=== PATIENT | female | born 1950 | race Caucasian/White ===

== ENCOUNTER 2016-09-23 06:27 | Inpatient (IN) | payer OTHER ==
[2016-08-04 10:18] VITALS: BMI 38.0
--- NOTE | 2016-08-04 10:47 | PAT Medication Instructions ---
Service Date Aug 04, 2016. Current Home Medication List Aspirin (Aspirin Ec), 81 MG PO QAM Ibuprofen (Motrin), 600 MG PO QAM Multiple Vitamin (Multi Vitamin), 1 TAB PO QAM Omeprazole (Prilosec), 20 MG PO QAM Oyster Shell (Calcium), 2 TAB PO QAM Medication Instructions For Your Scheduled Surgery - Hold the following medications 10 days prior to surgery per surgeon instructions: Ibuprofen (Motrin), 600 MG PO QAM - Hold the following medications the morning of surgery: Oyster Shell (Calcium), 2 TAB PO QAM Multiple Vitamin (Multi Vitamin), 1 TAB PO QAM - Take the following medications the morning of surgery with a sip of water: Aspirin (Aspirin Ec), 81 MG PO QAM Omeprazole (Prilosec), 20 MG PO QAM Tylenol (if needed) If you have any questions please call us at [phone] or [phone] ( Gretchen) or [phone]
--- NOTE | 2016-08-04 11:23 | DIAGNOSTIC IMAGING REPORT ---
TWO VIEW CHEST CLINICAL HISTORY: Preoperative examination. FINDINGS: PA and lateral chest radiographs are obtained. No prior studies are available for comparison at the time of dictation. The examination is degraded by large body habitus. The cardiomediastinal silhouette is unremarkable. The lungs and pleural spaces are clear. There is no pneumothorax. The skeletal structures are osteopenic. The bony thorax appears intact. Degenerative change is noted throughout the thoracic spine. IMPRESSION: No active disease in the chest. Electronically signed by: Victor Manuel Spear M.D. 08/04/2016 11:22 AM Dictated Date/Time: 08/04/2016 11:21 AM
[2016-08-04 11:41] LABS: BASO % 0.4 %; BASO ABS # 0.04 K/uL (0-0.2); COMPLETE YES; EOS % 3.1 %; HEMATOCRIT 41.1 % (37-47); IG% 0.3 %; LYMPH % 24.5 %; MEAN CORPUSCULAR HEMOGLOBIN 29.6 pg (25-34); MEAN CORPUSCULAR HGB CONC 33.6 g/dl (32-36); MEAN PLATELET VOLUME 11.3 fL (7.4-10.4); MONO % 5.9 %; NEUT % 65.8 %; PLATELET COUNT 269 K/uL (130-400); RED BLOOD COUNT 4.67 M/uL (4.2-5.4); WHITE BLOOD COUNT 9.39 K/uL (4.8-10.8)
[2016-08-04 11:59] LABS: INR 0.9 (0.9-1.1); PROTHROMBIN TIME (PATIENT) 9.6 SECONDS (9.0-12.0)
[2016-08-04 12:01] LABS: BUN/CREATININE RATIO 20.2 (10-20); CALCIUM 9.4 mg/dl (8.5-10.1); CREATININE 0.8 mg/dl (0.60-1.20); POTASSIUM 4.2 mmol/L (3.5-5.1)
--- NOTE | 2016-09-19 18:01 | HISTORY & PHYSICAL EXAMINATION ---
DATE OF ADMISSION: 09/23/2016 CHIEF COMPLAINT: Bilateral knee pain, right side greater than left. 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 She has got a long history of bilateral knee pain and discomfort, right side greater than left. She has been doing injections which did help temporarily only. This has become less successful over time, particularly in the right knee. The pain is mostly on the medial side of both knees. It is increased with weightbearing. She has become more debilitated by her disease and would like to have her right knee replaced. PAST MEDICAL HISTORY: Significant for: 1. Myasthenia gravis. 2. Gastroesophageal reflux disease. 3. Obesity. PAST SURGICAL HISTORY: 1. T\T\A. 2. [place] teeth extraction. ALLERGIES: MORPHINE AND CODEINE WHICH ARE NOT TRUE ALLERGIES BUT JUST SIDE EFFECTS SUCH NAUSEA. CURRENT MEDICINES: Include: 1. Aspirin once a day. 2. Multivitamin. 3. Calcium 4. Prilosec. SOCIAL HISTORY: A 65-year-old white female. She is single. She lives with one of her children and her spouse. Rare alcohol intake. No tobacco use. FAMILY HISTORY: Significant for heart disease. REVIEW OF SYSTEMS: Significant for myasthenia gravis. Apparently only affects her eyes. No current chest pain or shortness of breath. No history of DVT or PE. No bleeding problems. PHYSICAL EXAMINATION: GENERAL: Healthy, pleasant, middle-aged female, looks to be in good health. HEENT: Benign. NECK: Supple. No lymphadenopathy. LUNGS: Clear to auscultation. HEART: Regular rate and rhythm. ABDOMEN: Soft, nontender, nondistended. EXTREMITIES: Grossly neurovascularly intact except as follows: Examination of both knees reveals the patient walks independently. She does limp a little bit more on the right side. She has got varus alignment to the right knee. Range of motion is 5 degrees short of full extension to 120 degrees of flexion. No instability. Good straight leg raise. IMAGING DATA: X-rays of the right knee were reviewed. It shows advanced medial compartment DJD. She has complete loss of medial joint space. She has subchondral sclerosis. She has osteophytes off the medial femoral condyle and medial tibial plateau, similar disease on the left but not so severe. ASSESSMENT: A 65-year-old white female with advanced bilateral knee pain and degenerative joint disease, right side greater than left. Failed conservative treatment and would like to have her right knee replaced. PLAN: We are going to take her to the operating room and do a right total knee replacement. The risks and benefits of this procedure were explained to the patient including but not limited to DVT, PE, , infection, neurologic injury, vascular injury, bleeding, pain, limited range of motion, stiffness, failure to relieve his symptoms, incomplete relief of symptoms, need for further surgery in the future, fracture, leg length inequality, nerve palsy, etc. The patient understands and desires to proceed. Informed consent was obtained. The patient had preoperative workup. Chest x-ray showed no acute disease. EKG was normal. Labs are normal. As far as discharge plans, she is planning to be discharged to home and do outpatient therapy. We will have to be careful with her pain medicine, she gets nauseated easily. We will use aggressive antiemetics and titrate her on narcotics only as needed. SVITLANA
[~2016-09-23] VITALS: Ht 160 cm; Wt 97.3 kg
[2016-09-23] VITALS (7 sets, daily range): BP systolic 128–157; BP diastolic 66–81; PULSE 62–78; TEMP 36.4–36.8; O2SAT 95–99; Ht 160 cm; Wt 97.3 kg
[~2016-09-23 06:27] MED LIST: ACETAMINOPHEN 500 MG TAB PO SCH; ASPI81TA28 PO; BUPIVACAINE LIPOSOME 266 MG, BUPIVACAINE/EPINEPHRINE INJ 50 ML, SODIUM CHLORIDE 0.9% PF... INFIL SCH; CEFAZOLIN 2000 MG/60 ML D5W 60 ML IV SCH; FAMOTIDINE 20 MG TAB PO SCH; GABAPENTIN 300 MG CAP PO SCH; IBUP-1450 PO; LACTATED RINGER'S 1000ML 1,000 ML IV SCH; LACTATED RINGER'S 1000ML 500 ML IV ONE; LACTATED RINGER'S 1000ML IV SCH; METOCLOPRAMIDE HCL 10 MG TAB PO SCH; MULT-1027 PO; OYST500T47 PO; PRLSR20 PO; SCOPOLAMINE 1.5 MG TDSY TD SCH
[2016-09-23] MEDS ORDERED: BUPIVACAINE 0.25% 30 ML VIAL ONE (06:36)
[2016-09-23] MEDS ORDERED: BUPIVACAINE 0.5 % 5 MG/1 ML PF 10ML VIAL ONE (06:36)
--- NOTE | 2016-09-23 06:48 | History & Physical Bridge Note ---
H&P Re-Evaluation Bridge Note: I have examined the patient, reviewed the History & Physical and in the interval since the performance of the History & Physical I have noted the following changes of clinical significance: No changes noted
[2016-09-23] MEDS ORDERED: MIDAZOLAM HCL 1 MG/ML 2ML VIAL ONE (07:58)
[2016-09-23] MEDS ORDERED: ONDANSETRON INJ 2 MG/ML 2 ML VIAL IV PRN (08:00)
[2016-09-23] MEDS ORDERED: FENTANYL CITRATE INJ 50 MCG/1 ML 2 ML VIAL IV PRN (08:00)
[2016-09-23] MEDS ORDERED: ATROPINE SULFATE 0.1 MG/ML 5ML SYR IV PRN (08:00)
[2016-09-23] MEDS ORDERED: EpHEDrine SULFATE INJ 50 MG/ML AMP IV PRN (08:00)
[2016-09-23] MEDS: TRANEXAMIC ACID INJ 1,000 MG in SODIUM CHLORIDE 0.9% 100ML 100 ML IV SCH ×2 (08:55→11:47)
[2016-09-23] MEDS ORDERED: BACITRACIN 50000 UNIT VIAL ONE (09:05)
[2016-09-23] MEDS ORDERED: BUPIVACAINE LIPOSOME 1/3% 266 MG/20 ML VIAL INFIL ONE (09:05)
[2016-09-23] MEDS ORDERED: BUPIVACAINE/EPINEPHRINE 0.25% 1:200,000 30 ML VIAL ONE (09:05)
[2016-09-23] MEDS ORDERED: SODIUM CHLORIDE 0.9% PF 50 ML VIAL ONE (09:05)
[2016-09-23] MEDS ORDERED: PROPOFOL IV EMULSION 10 MG/ML 20 ML VIAL IV ONE (10:11)
[2016-09-23] MEDS ORDERED: LIDOCAINE HCL 2% 2 ML VIAL (20MG/ML) ONE (10:11)
--- NOTE | 2016-09-23 10:46 | [facility] Post Operative Brief Note ---
Immediate Operative Summary Operative Date Sep 23, 2016. Pre-Operative Diagnosis Right Knee Advanced Degenerative Joint Disease Post-Operative Diagnosis Right Knee Advanced Degenerative Joint Disease Procedure(s) Performed Right Total Knee Arthroplasty Surgeon Dr. Fontenot Patrol Inspector Surgeon(s) MELISSA Metz Estimated Blood Loss 50 ml Findings Right Knee DJD Fluids (cc crystalloids) 1800 cc Specimens A. Right Knee Bone and Tissue Drains None Anesthesia Spinal Complication(s) None Disposition Recovery Room / PACU
[2016-09-23] MEDS ORDERED: MAGNESIUM HYDROXIDE SUSP 30 ML UDC PO PRN (11:00)
[2016-09-23] MEDS ORDERED: HYDROmorphone INJ 0.5 MG/0.5 ML SYR IV PRN (11:00)
[2016-09-23] MEDS ORDERED: ZOLPIDEM TARTRATE 5 MG TAB PO PRN (11:00)
[2016-09-23] MEDS ORDERED: BISACODYL 10 MG SUPP PR PRN (11:00)
[2016-09-23] MEDS ORDERED: SILVER SULFADIAZINE 1% CR 50 GM JAR EXT PRN (11:00)
[2016-09-23] MEDS ORDERED: ALUMINUM/MAGNESIUM/SIMETH (MAALOX MAX) 30 ML UDC PO PRN (11:00)
[2016-09-23] MEDS ORDERED: METOCLOPRAMIDE HCL INJ 5 MG/ML 2 ML VIAL IV PRN (11:00)
[2016-09-23] MEDS ORDERED: OXYCODONE HCL IR 5 MG TAB (IMMEDIATE RELEASE) PO PRN (11:00)
--- NOTE | 2016-09-23 11:11 | DIAGNOSTIC IMAGING REPORT ---
RIGHT KNEE 2 VIEWS History: Right total knee arthroplasty. Degenerative arthritis. Postop. FINDINGS: The patient is status post a right total knee arthroplasty. The hardware is intact. No fracture or dislocation. Skin riana are in place. IMPRESSION: Right total knee arthroplasty. No evidence for hardware complication. Electronically signed by: Harsha Garza M.D. 09/23/2016 11:09 AM Dictated Date/Time: 09/23/2016 11:09 AM
--- NOTE | 2016-09-23 11:13 | OPERATIVE REPORT ---
DATE OF OPERATION: 09/23/2016 SURGEON: Charly Fontenot MD GUITAR PLAYER: MELISSA Vilchis PREOPERATIVE DIAGNOSIS: Right knee degenerative joint disease. POSTOPERATIVE DIAGNOSIS: Same. PROCEDURE PERFORMED: Right cemented posterior stabilized total knee arthroplasty. COMPLICATIONS: None. ESTIMATED BLOOD LOSS: 50 mL. FLUID REPLACEMENT: 1800 mL crystalloid fluid replacement. ANESTHESIA: Spinal with adductor canal block. DRAINS: None. SPECIMENS: Right knee sent for pathology. TOURNIQUET TIME: 48 minutes at 300 mmHg. 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 She has been through extensive conservative treatment without adequate relief. X-rays revealed advanced right knee DJD. The patient elected to proceed with total knee arthroplasty. OPERATIVE FINDINGS: Operative findings revealed advanced right knee DJD. She had grade 4 [id number] disease extensively in the medial femoral condyle and medial tibial plateau. The remainder of the knee joint was pretty well preserved. She had a moderate sized joint effusion. She had varus deformity to her knee. OPERATIVE IMPLANTS: Operative implants consisted of: 1. Biomet Vanguard size 65 right posterior stabilized femoral component. 2. Biomet size 67 tibial tray. 3. A 10-mm posterior stabilized polyethylene insert. 4. A 31 x 8 all poly patella. OPERATIVE PROCEDURE: The patient was taken to the operating room, identified and placed on the operating table in the supine position. All contact areas were appropriately padded. IV antibiotics were provided by anesthesia team. A spinal anesthetic and adductor canal block had been provided in the holding area. Moraes catheter was placed in sterile fashion. Right thigh tourniquet was then placed and the right lower extremity was then prepped and draped in the usual sterile fashion. The right leg was elevated and exsanguinated with an Esmarch and tourniquet was placed at 300 mmHg. An anterior approach to the right knee was then performed through a longitudinal incision centered over the patella. Sharp dissection was carried out through the subcutaneous tissues down to the level of the extensor mechanism. A medial parapatellar arthrotomy incision was made. Some subperiosteal dissection was carried out medially. The fat pad was resected from beneath the patellar tendon. The lateral patellofemoral ligament was released. The patella was everted and knee was flexed. The osteophytes were taken off the distal femur. The ACL and PCL were then released from the distal femur and the tibia subluxated anteriorly. The external tibial alignment jig was then placed in the anterior face of the tibia and adjusted 14 mm medially. Proximal tibial cut was made to remove about 2 mm of bone from the most deficient aspect of the medial tibial plateau. The tibia was then sized to a size 67. Some osteophytes were taken off medial and posteromedially. Attention was then drawn to the femur. The distal femur was entered with a sharp drill bit. Intramedullary canal was suctioned. A right 5-degree valgus cutting guide was then placed. Distal femoral cutting block was pinned in place. Distal femoral cut was made to take an additional 3 mm of bone off the distal femur. The femur was then sized to a size 65. We did downsize this just slightly. The AP cutting block was pinned parallel to the epicondylar axis, which was 3 degrees of external rotation. The anterior cut, anterior chamfer, posterior cut, and posterior chamfer cuts were made. Box cutting guide was placed and adjusted slightly lateral and the box cut was made. The remnants of the medial and lateral meniscus were excised. The osteophytes were taken off the posterior aspect of the femur. Trial femoral component was placed. Tibial tray was pinned in maximum external rotation and the drill and stem punch were used to create defect in proximal tibia for the tibial tray. The knee was then trialed and the 10-mm insert fit most appropriately. Attention was then drawn to the patella. The patella was cleaned of all soft tissues. Patella thickness measured 23 mm and was cut down to about 13. It was sized to a size 31 patella. Lug holes were drilled for the 31 patella. Lateral osteophyte was removed. Patella button was placed. Knee was taken through range of motion and patella tracked nicely with no thumbs test. Attention was then drawn toward placement of the permanent components. All trial components were removed. A bone plug was placed in the distal femur to limit blood loss. A double batch of Palacos G cement was mixed. A right size 65 posterior stabilized femoral component, size 67 tibial tray, a 10-mm posterior stabilized polyethylene insert, and a 31 x 8 all poly patella were then cemented in place. The knee was brought out into full extension until cement hardened. A final cement check was then performed. Pericapsular tissues were injected with a total of 100 mL of a combination of 20 mL of Exparel, 30 mL of normal saline, and 50 mL of 0.25% Marcaine with epinephrine. The patient did receive 1 gram of tranexamic acid. The tourniquet was then let down for a tourniquet time of 48 minutes. Hemostasis was assured with use of electrocautery. The wound was once again irrigated. The extensor mechanism was then closed with a combination of #1 PDS suture and #1 Vicryl suture in a [id number] fashion. Extensor mechanism was checked and found to be intact. The subcutaneous tissues were then closed with 2-0 Dexon suture in a buried interrupted fashion. Skin was closed skin riana. Leg was then cleaned and dried and a sterile dressing with Xeroform, 4 x 4, sterile cast padding and Lencho bandage were applied. The patient then transferred to the recovery room in stable condition. The patient tolerated the procedure well with no complications. All needle and sponge counts were correct at the end of the operation. I attest to the content of the Intraoperative Record and any orders documented therein. Any exceptio ns are noted below.
--- NOTE | 2016-09-23 11:18 | Anesthesiology Progress Note ---
Anesthesia Post Op Note Date & Time Sep 23, 2016 at 11:17 Vital Signs Pain Intensity: 0 Vital Signs Past 12 Hours Date Time Temp Pulse Resp B/P Pulse Ox O2 Delivery O2 Flow Rate FiO2 09/23/16 11:15 36.9 64 16 132/72 99 Nasal Cannula 3 09/23/16 11:05 64 16 129/68 99 Nasal Cannula 3 09/23/16 10:55 67 16 130/68 98 Nasal Cannula 3 09/23/16 10:47 36.4 66 16 139/65 97 Nasal Cannula 3 09/23/16 06:53 36.5 78 20 157/80 95 Room Air Notes Mental Status: alert / awake / arousable, participated in evaluation Pt Amnestic to Procedure: Yes Nausea / Vomiting: adequately controlled Pain: adequately controlled Airway Patency, RR, SpO2: stable & adequate BP & HR: stable & adequate Hydration State: stable & adequate Neuraxial Anesthesia: was administered, sensory block is resolving Anesthetic Complications: no major complications apparent
[2016-09-23] MEDS: D5W AND 1/2NSS + 20MEQ KCL 1,000 ML IV SCH ×2 (13:03→21:14)
[2016-09-23] MEDS: KETOROLAC TROMETHAMINE 15 MG/ML VIAL IV. SCH ×2 (13:47→20:13)
[2016-09-23] MEDS: ACETAMINOPHEN 500 MG TAB PO SCH ×2 (13:47→21:14)
[2016-09-23] MEDS: CEFAZOLIN IV 2,000 MG in DEXTROSE 5% 50ML 50 ML IV SCH ×2 (15:36→23:50)
[2016-09-23] MEDS: CHECK SCOPOLAMINE PATCH PLACEMENT SCH ×2 (15:37→23:50)
[2016-09-23] MEDS ORDERED: TRANEXAMIC ACID INJ 1,000 MG in SODIUM CHLORIDE 0.9% 100ML 100 ML IV SCH (16:00)
--- NOTE | 2016-09-23 18:20 | PROGRESS NOTE ---
DATE: 09/23/2016 SUBJECTIVE: A 65-year-old white female postop from a right knee replacement. She is doing pretty well. Pain is controlled. No chest pain or shortness of breath. Not feeling dizzy or lightheaded. OBJECTIVE: VITAL SIGNS: Temperature 36.4. Vital signs stable. GENERAL: Reveals a healthy, pleasant middle-aged female. She is sitting up in bed and looks comfortable. LUNGS: Clear to auscultation. HEART: Regular rate and rhythm. ABDOMEN: Soft, nontender, nondistended. EXTREMITIES: Grossly neurovascularly intact except as follows: Examination of the right leg reveals the leg to be well aligned. Dressing is clean, dry and intact. She can dorsiflex and plantarflex her foot and toes appropriately. She is neurologically intact. X-RAYS: X-rays of the right knee from recovery room were reviewed. It shows a cemented posterior right total knee arthroplasty. Components looked to be in good position. No signs of problems. ASSESSMENT: A 65-year-old white female postop from a right knee replacement, doing well. Pain is controlled. She is neurologically intact. PLAN: 1. DVT prophylaxis including thigh-high TEDs, SCDs, and aspirin twice a day. 2. PT/OT. Weightbearing as tolerated. Right total knee protocol. 3. Pain control, doing pretty well with current pain regimen. 4. IV antibiotics x 24 hours. 5. Disposition: Plan to discharge to home with some home health once adequately recovered.
[2016-09-23] MEDS: FERROUS GLUCONATE 324 MG TAB PO SCH (18:21)
[2016-09-23] MEDS: DOCUSATE SODIUM 100 MG CAP PO SCH (21:14)
[2016-09-23] MEDS: TAPENTADOL ER 50 MG TABCR PO SCH (21:14)
[2016-09-23] MEDS: ASPIRIN 325 MG ECTAB PO SCH (21:14)
[2016-09-24] MEDS: KETOROLAC TROMETHAMINE 15 MG/ML VIAL IV. SCH ×4 (01:40→19:26)
[2016-09-24 03:59] VITALS: BP 145/79; PULSE 83; TEMP 36.8; O2SAT 95
[2016-09-24] MEDS: D5W AND 1/2NSS + 20MEQ KCL 1,000 ML IV SCH (05:27)
[2016-09-24] MEDS: ACETAMINOPHEN 500 MG TAB PO SCH ×3 (05:27→21:34)
[2016-09-24 06:47] LABS: HEMATOCRIT 34.8 % (37-47); MEAN CELL VOLUME 90.9 fL (80-100); MEAN CORPUSCULAR HEMOGLOBIN 29.2 pg (25-34); MEAN CORPUSCULAR HGB CONC 32.2 g/dl (32-36); MEAN PLATELET VOLUME 11.4 fL (7.4-10.4); PLATELET COUNT 222 K/uL (130-400); RED BLOOD COUNT 3.83 M/uL (4.2-5.4)
[2016-09-24 07:22] LABS: BUN/CREATININE RATIO 12.1 (10-20); CALCIUM 8.6 mg/dl (8.5-10.1); CREATININE 0.92 mg/dl (0.60-1.20); POTASSIUM 4.6 mmol/L (3.5-5.1)
[2016-09-24 07:24] VITALS: BP 132/71; PULSE 76; TEMP 36.8; O2SAT 95
[2016-09-24] MEDS: CHECK SCOPOLAMINE PATCH PLACEMENT SCH ×2 (07:31→16:00)
[2016-09-24] MEDS: FERROUS GLUCONATE 324 MG TAB PO SCH ×3 (08:41→17:45)
[2016-09-24] MEDS: MULTIVITAMIN TAB PO SCH (08:41)
[2016-09-24] MEDS: DOCUSATE SODIUM 100 MG CAP PO SCH ×2 (08:42→21:34)
[2016-09-24] MEDS: CALCIUM CARBONATE 1250MG TAB PO SCH (08:42)
[2016-09-24] MEDS: PANTOprazole SOD 40 MG TAB PO SCH (08:42)
[2016-09-24] MEDS: TAPENTADOL ER 50 MG TABCR PO SCH ×2 (08:42→21:34)
[2016-09-24] MEDS: ASPIRIN 325 MG ECTAB PO SCH ×2 (08:42→21:34)
[2016-09-24] MEDS ORDERED: PANTOprazole SOD 40 MG TAB PO SCH (09:00)
[2016-09-24] MEDS ORDERED: MULTIVITAMIN TAB PO SCH (09:00)
--- NOTE | 2016-09-24 10:56 | Anesthesiology Progress Note ---
Anesthesia Post Op Note Date & Time Sep 24, 2016 at 10:54 Vital Signs Pain Intensity: 4.0 Vital Signs Past 12 Hours Date Time Temp Pulse Resp B/P Pulse Ox O2 Delivery O2 Flow Rate FiO2 09/24/16 07:25 Room Air 09/24/16 07:24 36.8 76 16 132/71 95 Room Air 09/24/16 07:00 Room Air 09/24/16 03:59 36.8 83 16 145/79 95 Room Air 09/23/16 23:50 Room Air 09/23/16 23:46 36.8 72 16 128/72 96 Room Air Notes Mental Status: alert / awake / arousable, participated in evaluation Pt Amnestic to Procedure: Yes Nausea / Vomiting: adequately controlled Pain: adequately controlled Airway Patency, RR, SpO2: stable & adequate BP & HR: stable & adequate Hydration State: stable & adequate Neuraxial Anesthesia: was administered, sensory block resolved Anesthetic Complications: no major complications apparent
[2016-09-24 11:35] VITALS: BP 132/66; PULSE 67; TEMP 37.1; O2SAT 95
[2016-09-24] MEDS: ONDANSETRON INJ 2 MG/ML 2 ML VIAL IV PRN (11:49)
--- NOTE | 2016-09-24 12:33 | PROGRESS NOTE ---
DATE: 09/24/2016 SUBJECTIVE: A 65-year-old female postop day 1 from right knee replacement. She is doing well. She did have an episode of nausea just recently. No chest pain or shortness of breath. Not feeling dizzy or lightheaded. OBJECTIVE: VITAL SIGNS: Temperature 37.1. Vital signs stable. GENERAL: Physical examination reveals a healthy pleasant, middle-aged female. She is lying in bed, looks pretty comfortable. Talking to a friend. LUNGS: Clear to auscultation. HEART: Regular rate and rhythm. ABDOMEN: Soft, nontender, and nondistended. EXTREMITIES: Grossly neurovascularly intact except as follows: Examination of the right leg reveals the leg to be well aligned. Dressing is clean, dry and intact. She can dorsiflex and plantarflex her foot appropriately. She is neurologically intact. LABORATORY DATA: Hemoglobin 11.2 and hematocrit 34.8. Electrolytes are stable. ASSESSMENT: A 65-year-old white female postop day #1 from a right knee replacement, doing pretty well. Recent episode of nausea associated with an oxycodone dose. PLAN: 1. DVT prophylaxis including thigh-high, SCDs, and aspirin twice a day. 2. PT/OT. Weightbearing as tolerated. Right total knee protocol. 3. Pain control, doing reasonably well with current pain regimen. She took 1 oxycodone and got nauseated. We will try and limit her narcotics and stick to Toradol and Nucynta. 4. Disposition: Plan to discharge to home. She is going to do outpatient therapy once adequately recovered.
[2016-09-24 15:24] VITALS: BP 164/69; PULSE 70; TEMP 37.1; O2SAT 93
[2016-09-24 17:48] VITALS: BP 157/60; PULSE 89
[2016-09-24] MEDS ORDERED: PROM25TA9 PO (19:22)
[2016-09-24] MEDS ORDERED: ASPEC325 PO (19:22)
[2016-09-24] MEDS ORDERED: ACET-1138 PO (19:22)
[2016-09-24] MEDS ORDERED: RXC5 PO (19:22)
--- NOTE | 2016-09-24 19:26 | Discharge Instructions ---
Discharge Instructions Date of Service Sep 24, 2016. Admission Reason for Admission: Right Knee Pain, Osteoarthritis Discharge Discharge Diagnosis / Problem: Right Knee Replacement Discharge Goals Goal(s): Decrease discomfort, Improve function, Increase independence, Improve disease control, Therapeutic intervention Activity Recommendations Activity Limitations: per Instructions/Follow-up section Weightbearing Status: Right weightbearing . Instructions / Follow-Up Instructions / Follow-Up ACTIVITY RECOMMENDATIONS: Physical Therapy: * You will go to physical therapy three times each week for four to six weeks after your surgery in order to regain your knee range of motion and to retrain your knee to work properly. * It is just as important to make sure you are getting your knee perfectly straight as it is to regain your knee bend. * Taking a pain pill an hour before therapy can help you have a more productive and comfortable therapy session. Home Exercise: * You were shown a series of exercises (heel props, heel slides, etc.) in the hospital. Do these exercises three to four times each day including the exercises you were shown in physical therapy. Walking: * Get up and walk several times each day. For the first four weeks, try not to stand or walk for more than one hour at a time. If you do stand or walk for more than one hour, you will not hurt anything, but your knee and leg will likely swell. * As you feel comfortable, you may change from the walker or crutches to a cane and then to independent walking. MEDICATIONS: New Medicine: * You will likely be taking one or more of these medications: 1. Oxycodone - A quick and shorter-acting pain medication. Take one to two tablets every four to six hours to lessen your pain. 2. Aspirin - Thins your blood to lessen the chance of forming a blood clot. * The most common side effects of pain medicine and iron are nausea and constipation. If nausea or constipation is too much of a problem or if you have any questions about your new medicines or doses, call [facility] at . We will try to help you manage these issues. VERY IMPORTANT TO READ AND REVIEW" Pain: * The immediate post-operative period after knee replacement surgery is often quite painful. * You are given a prescription for pain medicine. You should take it, as directed, when you need it, especially before physical therapy and before going to bed. Pain that interferes with sleep is very common and can last several months. * You will likely need pain medicine for the first four to six weeks. It will not stop all of the pain. The pain will lessen and as you feel better, you may change to milder pain medicine such as Tylenol. * The most common side effects of pain medicine are nausea and constipation, so don't take more than you need. SPECIAL CARE INSTRUCTIONS: TEDs/Elastic Stockings: * The white elastic stockings help limit swelling and prevent blood clots from forming in your legs. The more you wear them, the more they work. * Wear them for six weeks after knee replacement surgery and four weeks after partial knee replacement. Prevention of Infection: * Take antibiotics one hour before any dental cleaning, dental work, urological procedure, gastrointestinal procedure or any invasive surgery in order to prevent your new joint from getting infected. * You may get the antibiotics from the doctor performing the procedure or you may call our office at before and we will call in a prescription to the pharmacy of your choice. Things to Watch For: * Drainage from the incision site that occurs more than one week after your surgery. * Severely increased knee/leg pain or swelling. * Increased redness at the incision site. * Fever above 102 degrees Fahrenheit. * Unusual chest pain or shortness of breath. * Unusual pain or burning with urination. Call [facility] at with any of the above problems or if you have any questions about your medicines or recovery. FOLLOW UP VISIT: Make an appointment to see your doctor for approximately two weeks after surgery for a progress check and staple removal by calling the office at . Current Hospital Diet Patient's current hospital diet: Regular Diet, Gluten Free Diet Discharge Diet Recommended Diet: Gluten Free Diet Procedures Procedures Performed: Right Total Knee Arthroplasty Pending Studies Studies pending at discharge: no Medical Emergencies . Who to Call and When: Medical Emergencies: If at any time you feel your situation is an emergency, please call [phone] immediately. . Non-Emergent Contact Non-Emergency issues call your: Surgeon . "Provider Documentation" section prepared by Charly Fontenot. . VTE Core Measure Inpt VTE Proph given/why not?: Other Anticoagulation, T.E.D. Stockings, SCD's
[2016-09-24 23:35] VITALS: BP_SYST 178; BP_SYST 180; BP_DIAS 66; BP_DIAS 72; PULSE 93; TEMP 36.8; O2SAT 93
[2016-09-25] MEDS: CHECK SCOPOLAMINE PATCH PLACEMENT SCH ×2 (00:24→08:52)
[2016-09-25] MEDS: ONDANSETRON INJ 2 MG/ML 2 ML VIAL IV PRN (01:06)
[2016-09-25] MEDS: KETOROLAC TROMETHAMINE 15 MG/ML VIAL IV. SCH ×2 (01:07→08:52)
[2016-09-25 01:17] VITALS: BP 167/74; PULSE 87
[2016-09-25] MEDS: ACETAMINOPHEN 500 MG TAB PO SCH (05:41)
[2016-09-25 06:24] VITALS: BP 161/77; PULSE 94; TEMP 37.2; O2SAT 93
[2016-09-25 07:26] VITALS: O2SAT 93
--- NOTE | 2016-09-25 07:41 | PROGRESS NOTE ---
DATE: 09/25/2016 SUBJECTIVE: 65-year-old white female postop day 2 from a right knee replacement. Nausea is somewhat improved today but not completely resolved. No chest pain or shortness of breath. Not feeling dizzy or lightheaded. OBJECTIVE: VITAL SIGNS: Temperature 37.2. Vital signs stable. PHYSICAL EXAMINATION: GENERAL: Reveals a healthy, pleasant middle-aged female. She is sitting up in bed and looks pretty comfortable. LUNGS: Clear to auscultation. HEART: Regular rate and rhythm. ABDOMEN: Soft, nontender, nondistended. EXTREMITIES: Grossly neurovascularly intact except as follows: Examination of the right leg reveals the dressing to be clean, dry and intact. Calf is soft and supple. She is neurologically intact. ASSESSMENT: 65-year-old white female postop day 2 from right knee replacement, doing well. Pain is reasonably well controlled. Nausea is improving. PLAN: 1. DVT prophylaxis including thigh-high TEDS, SCDs, and aspirin twice a day. 2. PT/OT. Weightbearing as tolerated. Right total knee protocol. 3. Pain control. Doing reasonably well with current pain regimen. She does have problems with nausea and we will write her for some Phenergan on the outside. 4. Disposition: Plan to discharge to home. She is going to do outpatient therapy.
[2016-09-25 08:20] VITALS: BP 159/78; PULSE 89; O2SAT 92
[2016-09-25] MEDS: FERROUS GLUCONATE 324 MG TAB PO SCH (08:30)
[2016-09-25] MEDS: DOCUSATE SODIUM 100 MG CAP PO SCH (08:52)
[2016-09-25] MEDS: ASPIRIN 325 MG ECTAB PO SCH (08:52)
[2016-09-25] MEDS: MULTIVITAMIN TAB PO SCH (08:53)
[2016-09-25] MEDS: TAPENTADOL ER 50 MG TABCR PO SCH (08:53)
[2016-09-25] MEDS: PANTOprazole SOD 40 MG TAB PO SCH (08:54)
[2016-09-25] MEDS: CALCIUM CARBONATE 1250MG TAB PO SCH (08:54)
[2016-09-25 09:16] VITALS: BP 161/77; PULSE 94; TEMP 37.2; O2SAT 93
--- NOTE | 2016-09-30 16:17 | DISCHARGE SUMMARY ---
ADMITTING PHYSICIAN AND SURGEON: Charly Fontenot MD ADMITTING DIAGNOSIS: Right knee degenerative joint disease. SURGERY PERFORMED: Right total knee arthroplasty. SECONDARY DIAGNOSES: Myasthenia gravis, gastroesophageal reflux disease, and obesity. CONSULTS: None obtained. HISTORY AND PHYSICAL EXAMINATION: Well documented in the patient's chart. HOSPITAL COURSE: The patient was admitted on 09/23/2016 underwent total knee arthroplasty, tolerated the procedure well. There were no complications. She was transferred to the PACU postoperatively and later to the orthopedic floor for further care. She was given Ancef for antibiotic prophylaxis, TYRELL stockings, SCDs and aspirin for DVT prophylaxis. Hemoglobin, hematocrit and vital signs were monitored during her hospital stay and remained stable. She developed some postoperative anemia with a hemoglobin down to 11.2, did not require any blood transfusions. She had some nausea postoperatively, which she was given Phenergan for. There were no complications. By postoperative day 2; she was tolerating a general diet, pain was controlled with oral pain medicine, she was participating in physical therapy and had no signs or symptoms of deep vein thrombosis. On postoperative day 2, she was discharged home. She was given printed discharge instructions including prescriptions for extra strength Tylenol, aspirin 325 mg b.i.d., oxycodone, and Phenergan. Continue her home medications with the exception of her home dose of aspirin, which was changed. Continue physical therapy, weightbearing as tolerated and TYRELL stockings. Follow up in 10-12 days or sooner if there are problems or concerns.
== END 2016-09-25 09:52 | disposition home or self-care (01) | DRG 470 ==
LOC: ENRESERVTM → ENRESERVDT → C.ACU 06:27 → C.3E 06:30
PROVIDERS: ADMIT Orthopaedic Surgery Sports Medicine; ATTEND Orthopaedic Surgery Sports Medicine
PROC: 0SRC0J9 Replacement of Right Knee Joint with Synthetic Substitute, Cemented, Open Approach (ICD-10-PCS; principal; 2016-09-23 08:55)
DX: M17.0 Bilateral primary osteoarthritis of knee (principal); M21.161 Varus deformity, not elsewhere classified, right knee; M25.461 Effusion, right knee; R11.0 Nausea; T40.2X5A Adverse effect of other opioids, initial encounter; Y92.230 Patient room in hospital as the place of occurrence of the external cause; G70.00 Myasthenia gravis without (acute) exacerbation; K21.9 Gastro-esophageal reflux disease without esophagitis; E66.9 Obesity, unspecified; Z68.38 Body mass index [BMI] 38.0-38.9, adult; Z79.82 Long term (current) use of aspirin; Z79.1 Long term (current) use of non-steroidal anti-inflammatories (NSAID); Z79.899 Other long term (current) drug therapy

== ENCOUNTER 2017-09-22 10:51 | Inpatient (IN) | payer OTHER ==
[2017-08-24 13:26] VITALS: BMI 38.0
--- NOTE | 2017-08-24 13:54 | PAT Medication Instructions ---
Service Date Aug 24, 2017. Current Home Medication List Acetaminophen (Tylenol Extra Strength), 1,000 MG PO Q8H Aspirin (Aspirin Ec), 81 MG PO QAM Calcium Carbonate (Calcium), 2 TAB PO QAM Ibuprofen (Motrin), 600 MG PO QAM PRN for Pain Multiple Vitamin (Multi Vitamin), 1 TAB PO QAM Omeprazole (Prilosec), 20 MG PO QAM Medication Instructions For Your Scheduled Surgery - Hold the following medications 7 days prior to surgery per your surgeon's instructions: Ibuprofen (Motrin), 600 MG PO QAM PRN for Pain - Hold the following medications the morning of surgery: Calcium Carbonate (Calcium), 2 TAB PO QAM Multiple Vitamin (Multi Vitamin), 1 TAB PO QAM - Take the following medications the morning of surgery with a sip of water: Acetaminophen (Tylenol Extra Strength), 1,000 MG PO Q8H (if needed, can be taken up to four hours before surgery) Aspirin (Aspirin Ec), 81 MG PO QAM Omeprazole (Prilosec), 20 MG PO QAM - Take the following medications as scheduled the night before surgery: Acetaminophen (Tylenol Extra Strength), 1,000 MG PO Q8H (if needed) If you have any questions please call us at [phone] or [phone] or [phone]
[2017-08-24 14:27] LABS: BASO % 0.4 %; BASO ABS # 0.03 K/uL (0-0.2); EOS % 5.4 %; EOS ABS # 0.37 K/uL (0-0.5); HEMATOCRIT 41.7 % (37-47); HEMOGLOBIN 13.8 g/dL (12.0-16.0); IG# 0.01 K/uL (0.00-0.02); LYMPH % 36.6 %; LYMPH ABS # 2.51 K/uL (1.2-3.4); MEAN CELL VOLUME 88.2 fL (80-100); MEAN CORPUSCULAR HEMOGLOBIN 29.2 pg (25-34); MEAN CORPUSCULAR HGB CONC 33.1 g/dl (32-36); MEAN PLATELET VOLUME 10.7 fL (7.4-10.4); MONO % 11.5 %; MONO ABS # 0.79 K/uL (0.11-0.59); NEUT ABS # 3.14 K/uL (1.4-6.5); PLATELET COUNT 252 K/uL (130-400); RED CELL DISTRIBUTION WIDTH CV 13.8 % (11.5-14.5); RED CELL DISTRIBUTION WIDTH SD 45.2 fL (36.4-46.3); WHITE BLOOD COUNT 6.85 K/uL (4.8-10.8)
--- NOTE | 2017-08-24 14:29 | DIAGNOSTIC IMAGING REPORT ---
CHEST 2 VIEWS ROUTINE CLINICAL HISTORY: PAT preoperative evaluation COMPARISON STUDY: 08/04/2016 FINDINGS: The bones soft tissues and hemidiaphragms are normal. The cardiomediastinal silhouette is normal. The lungs are clear. The pulmonary vasculature is normal. IMPRESSION: Negative chest. The above report was generated using voice recognition software. It may contain grammatical, syntax or spelling errors. Electronically signed by: Cas Pitts M.D. 08/24/2017 2:28 PM Dictated Date/Time: 08/24/2017 2:26 PM
[2017-08-24 14:36] LABS: INR 0.9 (0.9-1.1); PTT PATIENT 26.3 SECONDS (21.0-31.0)
[2017-08-24 15:47] LABS: CALCIUM 9.6 mg/dl (8.5-10.1); CREATININE 0.82 mg/dl (0.60-1.20); POTASSIUM 4.3 mmol/L (3.5-5.1)
--- NOTE | 2017-09-18 19:44 | HISTORY & PHYSICAL EXAMINATION ---
DATE OF ADMISSION: 09/22/2017 CHIEF COMPLAINT: Left knee pain and discomfort. 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 She is now about a year out from her right knee replacement and doing well from that. She continues to be bothered and limited by left knee pain. She has a long history of knee arthritis in both knees and has been through extensive conservative treatment without adequate relief recently. The shots and conservative care have become less successful over time. The right knee is doing great, and she would like to have her left knee replaced. Pain is mostly medial. PAST MEDICAL HISTORY: 1. Myasthenia gravis. 2. Gastroesophageal reflux disease. 3. Bottom obesity with BMI of 38. PAST SURGICAL HISTORY: Includes: 1. T&A. 2. [place] teeth extraction. 3. Right total knee replacement done on 09/23/2016. ALLERGIES: MORPHINE AND CODEINE WHICH CAUSED NAUSEA. She did okay with oxycodone postop last time. MEDICATIONS: Current medicines include 1. Baby aspirin. 2. Multivitamin. 3. Calcium. 4. Prilosec. SOCIAL HISTORY: A 66-year-old female. She is single. 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 FAMILY HISTORY: Significant for heart disease. REVIEW OF SYSTEMS: Significant for myasthenia gravis. No chest pain, no shortness of breath. No evidence of DVT or PE. The myasthenia gravis really only affects her eyes. PHYSICAL EXAMINATION: GENERAL: Examination reveals a healthy and pleasant middle-aged female, looks to be in good health. HEENT: Benign. NECK: Supple. No lymphadenopathy. LUNGS: Clear to auscultation. CARDIOVASCULAR: Heart has regular rate and rhythm. GASTROINTESTINAL: Abdomen is soft, nontender, nondistended. EXTREMITIES: Grossly neurovascularly intact except as follows: Examination of the left knee reveals patient ambulates independently. She has slight varus alignment to her knee. Small knee effusion. She has bony hypertrophy medially. She does have some tenderness over the medial joint line. Range of motion is 5 to 125. No instability. Examination of the right knee reveals well-healed incision. Range of motion is 0 to 125. No instability. X-RAYS: X-rays of left knee reviewed, show advanced medial compartment DJD. She has complete loss of medial joint space. 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 She has failed conservative treatment and would like to have her left knee replaced. PLAN: We will take her to the operating room and do left total knee replacement. The risks and benefits of this procedure explained to the patient, which include but not limited to DVT, PE, , infection, neurological injury, vascular injury, bleeding problem, pain, limited range of motion, stiffness, failure to relieve her symptoms, incomplete relief of symptoms, need for further surgery in the future, fracture, leg length inequality, nerve palsy, etc. The patient understands and desires to proceed. Informed consent was obtained. Patient does not really do well with narcotics. She did pretty well with oxycodone and will likely have to use some Zofran intermittently. She does live by herself and was discharged home last time and did outpatient therapy and did pretty well.
[~2017-09-22] VITALS: Ht 157.5 cm; Wt 92.6 kg
[2017-09-22] VITALS (8 sets, daily range): BP systolic 114–148; BP diastolic 66–88; PULSE 63–77; TEMP 36.5–37.1; O2SAT 93–97; Ht 157.5 cm; Wt 92.6 kg
[~2017-09-22 10:51] MED LIST changes: +ACET-1138 PO; +BUPIVACAINE 0.25% 30 ML VIAL ONE; +BUPIVACAINE 0.5 % 5 MG/1 ML PF 10ML VIAL ONE; +CALC-393 PO; -CEFAZOLIN 2000 MG/60 ML D5W 60 ML IV SCH; +CEFAZOLIN 2000MG IV PUSH 15 ML IV SCH; -LACTATED RINGER'S 1000ML 500 ML IV ONE; +LIDOCAINE HCL 2% 2 ML VIAL (20MG/ML) ONE; +MIDAZOLAM HCL 1 MG/ML 2ML VIAL ONE; +ONDANSETRON INJ 2 MG/ML 2 ML VIAL ONE; -OYST500T47 PO; +PROPOFOL IV EMULSION 10 MG/ML 20 ML VIAL IV ONE; +TRANEXAMIC ACID INJ 1,000 MG x 1 Bag Intra-Op IV SCH
[2017-09-22] MEDS ORDERED: SODIUM CHLORIDE 0.9% PF 50 ML VIAL ONE (12:34)
[2017-09-22] MEDS ORDERED: BUPIVACAINE LIPOSOME 1/3% 266 MG/20 ML VIAL INFIL ONE (12:34)
[2017-09-22] MEDS ORDERED: BACITRACIN 50000 UNIT VIAL ONE (12:34)
[2017-09-22] MEDS ORDERED: EpINEphrine INJ 1MG/ML AMP 1 MG/ML AMP ONE (12:35)
[2017-09-22] MEDS ORDERED: BUPIVACAINE 0.25% 30 ML VIAL ONE ×2 (12:35→12:37)
[2017-09-22] MEDS ORDERED: MIDAZOLAM HCL 1 MG/ML 2ML VIAL ONE (13:02)
[2017-09-22] MEDS ORDERED: EpHEDrine SULFATE INJ 50 MG/ML AMP IV PRN (13:15)
[2017-09-22] MEDS ORDERED: ATROPINE SULFATE 0.1 MG/ML 5ML SYR IV PRN (13:15)
[2017-09-22] MEDS ORDERED: ONDANSETRON INJ 2 MG/ML 2 ML VIAL IV PRN ×2 (13:15→14:45)
[2017-09-22] MEDS ORDERED: KETOROLAC TROMETHAMINE 30 MG/ML VIAL IV. PRN (13:15)
[2017-09-22] MEDS ORDERED: PHENYLEPHRINE 100MCG/ML 5ML SYR IV PRN (13:15)
[2017-09-22] MEDS ORDERED: HYDROmorphone INJ 2 MG/ML SYR/VIAL IV PRN (13:15)
[2017-09-22] MEDS ORDERED: BUPIVACAINE 0.25% 30 ML VIAL INJ ONE (13:42)
--- NOTE | 2017-09-22 14:32 | [facility] Post Operative Brief Note ---
Immediate Operative Summary Operative Date Sep 22, 2017. Pre-Operative Diagnosis Left Knee Advanced Degenerative Joint Disease Post-Operative Diagnosis Left Knee Advanced Degenerative Joint Disease Procedure(s) Performed Left Total Knee Arthroplasty Surgeon Dr. Fontenot Steam Turbine Assembler Surgeon(s) MELISSA Metz Estimated Blood Loss 50 ml Findings Consistent with Post-Op Diagnosis Fluids (cc crystalloids) 800 cc Specimens A. Left Knee Bone and Tissue Drains None Anesthesia Type MAC Spinal Regional Complication(s) none Disposition Accompanied Pt To Recover: no Disposition: Recovery Room / PACU
[2017-09-22] MEDS ORDERED: MAGNESIUM HYDROXIDE SUSP 30 ML UDC PO PRN (14:45)
[2017-09-22] MEDS ORDERED: ALUMINUM/MAGNESIUM/SIMETH (MAALOX MAX) 30 ML UDC PO PRN (14:45)
[2017-09-22] MEDS ORDERED: ZOLPIDEM TARTRATE 5 MG TAB PO PRN (14:45)
[2017-09-22] MEDS ORDERED: SILVER SULFADIAZINE 1% CR 50 GM JAR EXT PRN (14:45)
[2017-09-22] MEDS ORDERED: BISACODYL 10 MG SUPP PR PRN (14:45)
[2017-09-22] MEDS ORDERED: METOCLOPRAMIDE HCL INJ 5 MG/ML 2 ML VIAL IV PRN (14:45)
[2017-09-22] MEDS ORDERED: HYDROmorphone INJ 0.5 MG/0.5 ML SYR IV PRN (14:45)
[2017-09-22] MEDS ORDERED: DiphenhydrAMINE HCL 50 MG/ML VIAL IV PRN (14:45)
[2017-09-22] MEDS ORDERED: OXYCODONE HCL IR 5 MG TAB (IMMEDIATE RELEASE) PO PRN (14:45)
--- NOTE | 2017-09-22 14:59 | Anesthesiology Progress Note ---
Anesthesia Post Op Note Date & Time Sep 22, 2017 at 14:58 Vital Signs Pain Intensity: 0 Vital Signs Past 12 Hours Date Time Temp Pulse Resp B/P (MAP) Pulse Ox O2 Delivery O2 Flow Rate FiO2 09/22/17 14:37 36.5 80 18 121/62 96 Room Air 09/22/17 11:20 37.1 74 18 148/88 94 Room Air Notes Mental Status: alert / awake / arousable, participated in evaluation Pt Amnestic to Procedure: Yes Nausea / Vomiting: adequately controlled Pain: adequately controlled Airway Patency, RR, SpO2: stable & adequate BP & HR: stable & adequate Hydration State: stable & adequate Neuraxial Anesthesia: was administered, sensory block is resolving Anesthetic Complications: no major complications apparent
--- NOTE | 2017-09-22 15:07 | DIAGNOSTIC IMAGING REPORT ---
L KNEE 1 OR 2 VIEWS ROUTINE HISTORY: 66 years-old Female AP/LATERAL IN PACU LEFT KNEE status post left knee total joint arthroplasty. Degenerative joint disease. COMPARISON: Left knee radiographs 07/23/2017 TECHNIQUE: 2 views of the left knee FINDINGS: Postoperative changes from recent left knee total joint arthroplasty with patellar resurfacing. Anterior midline skin riana are noted along with expected postsurgical soft tissue swelling and deep tissue air. No periprosthetic fracture or retained foreign body. IMPRESSION: Left knee total joint arthroplasty and patellar resurfacing without complication identified. The above report was generated using voice recognition software. It may contain grammatical, syntax or spelling errors. Electronically signed by: Arthur Mena M.D. 09/22/2017 3:05 PM Dictated Date/Time: 09/22/2017 3:04 PM
[2017-09-22] MEDS: CHECK SCOPOLAMINE PATCH PLACEMENT SCH ×2 (16:00→23:59)
[2017-09-22] MEDS: D5W AND 1/2NSS + 20MEQ KCL 1,000 ML IV SCH (16:13)
[2017-09-22] MEDS: ACETAMINOPHEN 500 MG TAB PO SCH ×2 (16:13→21:35)
[2017-09-22] MEDS: KETOROLAC TROMETHAMINE 15 MG/ML VIAL IV. SCH ×2 (16:13→21:35)
[2017-09-22] MEDS: FERROUS GLUCONATE 324 MG TAB PO SCH (18:32)
--- NOTE | 2017-09-22 19:13 | OPERATIVE REPORT ---
DATE OF OPERATION: 09/22/2017 SURGEON: Charly Fontenot MD HEADING AND PRIMING OPERATOR: MELISSA Vilchis PREOPERATIVE DIAGNOSIS: Left knee degenerative joint disease. POSTOPERATIVE DIAGNOSIS: Same. PROCEDURE PERFORMED: Left cemented posterior stabilized total knee arthroplasty. COMPLICATIONS: None. ESTIMATED BLOOD LOSS: Less than 50 mL. FLUID REPLACEMENT: 800 mL crystalloid fluid replacement. ANESTHESIA: Spinal with adductor canal block. DRAINS: None. SPECIMENS: Left knee sent for pathology. TOURNIQUET TIME: 56 minutes at 300 mmHg. 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 This became less responsive to conservative care. She underwent a right knee replacement a year ago with an excellent result. She has got similar findings in her left knee and elected to proceed with left total knee arthroplasty. OPERATIVE FINDINGS: Operative findings were advanced left knee DJD. She had grade 4 [id number] disease of the medial femoral condyle and medial tibial plateau. Not a lot of eburnation, but just a full thickness cartilage wear. She had a moderate size joint effusion. Her lateral and patellofemoral compartments were much well better preserved. She has some osteophytes of the medial femoral condyle and medial tibial plateau. OPERATIVE IMPLANTS: Operative implants consisted of: 1. Biomet Vanguard size 62.5 left posterior stabilized femoral component. 2. Biomet size 67 tibial tray. 3. A 12 mm posterior stabilized polyethylene insert. 4. A 31 x 8 all poly patella. OPERATIVE PROCEDURE: The patient was taken to the operating room, identified and placed on the operating table in supine position. All contact areas were appropriately padded. IV antibiotics were provided by the anesthesia team. A spinal anesthetic and adductor canal block had been provided in the holding area. Moraes catheter was placed in sterile fashion. A left thigh tourniquet was then placed and left lower extremity was then prepped and draped in usual sterile fashion. The left leg was elevated and exsanguinated with Esmarch and tourniquet was placed at 300 mmHg. An anterior approach of the left knee was then performed through a longitudinal incision centered over the patella. Sharp dissection was carried through the subcutaneous tissues down to the level of the extensor mechanism. A medial parapatellar arthrotomy incision was made. Some subperiosteal dissection was carried out medially. The fat pad resected from beneath the patellar tendon. Lateral patellofemoral ligament was released. Patella was everted and the knee was flexed. The osteophytes were taken off the distal femur. The ACL and PCL were then released from the distal femur and the tibia subluxated anteriorly. The external tibial alignment jig was then placed in the anterior face of the tibia and adjusted 14 mm medially. Proximal tibial cut was made to remove about 2-3 mm of bone from the most deficient aspect of the medial tibial plateau where she did not have a lot of bony wear. Tibia was sized to a size 67. I tried to maximize coverage due to her osteoporotic bone. Attention was then drawn to the femur. The distal femur was entered with a sharp drill bit. Intramedullary canal was suctioned. A left 5 degree valgus cutting guide was placed. Distal femoral cutting block was pinned in place. Distal femoral cut was made to take an additional 3 mm of bone off the distal femur. The femur was then sized to a size 62.5. We did downsize this about half a size. The AP cutting block was pinned parallel to the epicondylar axis, which was 5 degrees of external rotation. The anterior cut, anterior chamfer, posterior cut, posterior chamfer cuts were made. Box cutting guide was placed and adjusted slight lateral and the box cut was made. The knee was flexed. The remnants of the medial and lateral menisci were excised. The osteophytes were taken off the posterior aspect of the femur. A trial femoral component was placed. The tibial tray was pinned in maximum external rotation and drill and stem punch were used to create defect in proximal tibia for the tibial tray. The knee was then trialed and the 12 mm insert fit most appropriately. Attention was then drawn to the patella. The patella was cleaned off all soft tissues. Patella thickness measured to 22 mm in thickness and was cut down to 13. It was sized to a size 31 patella. Lug holes were drilled for 31 patella. The lateral osteophyte was removed. Patella button was placed. Knee was taken through range of motion and patella tracked nicely with no thumbs test. Attention was then drawn toward placement of permanent components. All trial components removed. A bone plug was placed in the distal femur to limit blood loss. A double batch of [place] G cement was mixed. A size 62.5 left posterior stabilized femoral component, size 67 tibial tray, 12 mm posterior stabilized polyethylene insert, and a 31 x 8 all poly patella then cemented in place. Of note, her bone was fairly soft. So, I really tried to maximize the tibial coverage. The knee was brought out into full extension until cement hardened. A final cement check was then performed. Pericapsular tissues were injected with total of 100 mL of a combination of 20 mL Exparel, 30 mL of normal saline, 50 mL of 0.25% Marcaine with epinephrine. The patient did receive 1 g of tranexamic acid. The tourniquet was then let down for final tourniquet time of 56 minutes. Hemostasis was assured with use of electrocautery. The extensor mechanism was then closed in combination of #1 PDS suture and #1 Vicryl suture in a [id number] fashion. Extensor mechanism was checked and found to be intact. Subcutaneous tissues were then closed with #2 Dexon suture in a buried knot fashion. Skin was closed with skin riana. Leg was then cleaned and dried and a sterile dressing of Xeroform, 4 x 4, sterile cast padding, and Lencho bandage were applied. The patient then transferred to the recovery room in stable condition. The patient tolerated the procedure with no complication. All needle and sponge counts were correct at the end of the operation. I attest to the content of the Intraoperative Record and any orders documented therein. Any exceptions are noted below. SVITLANA
[2017-09-22] MEDS ORDERED: TRANEXAMIC ACID INJ 1,000 MG in SODIUM CHLORIDE 0.9% 100ML 100 ML IV SCH (20:30)
[2017-09-22] MEDS: CEFAZOLIN IV 2,000 MG in SYRINGE 0 ML IV SCH (20:31)
[2017-09-22] MEDS: TAPENTADOL ER 50 MG TABCR PO SCH (20:31)
[2017-09-22] MEDS: ASPIRIN 81 MG ECTAB PO SCH (20:32)
[2017-09-22] MEDS: DOCUSATE SODIUM 100 MG CAP PO SCH (20:33)
[2017-09-22] MEDS ORDERED: SENNA 8.6 MG TAB PO SCH (21:00)
[2017-09-22] MEDS ORDERED: ASPI-320 PO (21:53)
[2017-09-22] MEDS ORDERED: RXC5 PO (21:53)
[2017-09-22] MEDS ORDERED: FRRG PO (21:53)
[2017-09-22] MEDS ORDERED: ACET-1138 PO (21:53)
[2017-09-22] MEDS ORDERED: ONDA4TAB65 PO (21:53)
--- NOTE | 2017-09-22 21:57 | Discharge Instructions ---
Discharge Instructions Date of Service Sep 22, 2017. Admission Reason for Admission: Left Knee Degenerative Joint Disease, Knee Pain Discharge Discharge Diagnosis / Problem: Left Knee Replacement Discharge Goals Goal(s): Decrease discomfort, Improve function, Increase independence, Improve disease control, Therapeutic intervention Activity Recommendations Activity Limitations: per Instructions/Follow-up section Weightbearing Status: Left weightbearing . Instructions / Follow-Up Instructions / Follow-Up ACTIVITY RECOMMENDATIONS: Physical Therapy: * You will go to physical therapy three times each week for four to six weeks after your surgery in order to regain your knee range of motion and to retrain your knee to work properly. * It is just as important to make sure you are getting your knee perfectly straight as it is to regain your knee bend. * Taking a pain pill an hour before therapy can help you have a more productive and comfortable therapy session. Home Exercise: * You were shown a series of exercises (heel props, heel slides, etc.) in the hospital. Do these exercises three to four times each day including the exercises you were shown in physical therapy. Walking: * Get up and walk several times each day. For the first four weeks, try not to stand or walk for more than one hour at a time. If you do stand or walk for more than one hour, you will not hurt anything, but your knee and leg will likely swell. * As you feel comfortable, you may change from the walker or crutches to a cane and then to independent walking. MEDICATIONS: New Medicine: * You will likely be taking one or more of these medications: 1. Oxycodone - A quick and shorter-acting pain medication. Take one to two tablets every four to six hours to lessen your pain. 2. Iron Sulfate - Take two times each day for the month after surgery to help you replace the blood lost during surgery. 3. Aspirin - Thins your blood to lessen the chance of forming a blood clot. * The most common side effects of pain medicine and iron are nausea and constipation. If nausea or constipation is too much of a problem or if you have any questions about your new medicines or doses, call [facility] at . We will try to help you manage these issues. VERY IMPORTANT TO READ AND REVIEW" Pain: * The immediate post-operative period after knee replacement surgery is often quite painful. * You are given a prescription for pain medicine. You should take it, as directed, when you need it, especially before physical therapy and before going to bed. Pain that interferes with sleep is very common and can last several months. * You will likely need pain medicine for the first four to six weeks. It will not stop all of the pain. The pain will lessen and as you feel better, you may change to milder pain medicine such as Tylenol. * The most common side effects of pain medicine are nausea and constipation, so don't take more than you need. SPECIAL CARE INSTRUCTIONS: TEDs/Elastic Stockings: * The white elastic stockings help limit swelling and prevent blood clots from forming in your legs. The more you wear them, the more they work. * Wear them for six weeks after knee replacement surgery and four weeks after partial knee replacement. Prevention of Infection: * Take antibiotics one hour before any dental cleaning, dental work, urological procedure, gastrointestinal procedure or any invasive surgery in order to prevent your new joint from getting infected. * You may get the antibiotics from the doctor performing the procedure or you may call our office at before and we will call in a prescription to the pharmacy of your choice. Things to Watch For: * Drainage from the incision site that occurs more than one week after your surgery. * Severely increased knee/leg pain or swelling. * Increased redness at the incision site. * Fever above 102 degrees Fahrenheit. * Unusual chest pain or shortness of breath. * Unusual pain or burning with urination. Call [facility] at with any of the above problems or if you have any questions about your medicines or recovery. FOLLOW UP VISIT: Make an appointment to see your doctor for approximately two weeks after surgery for a progress check and staple removal by calling the office at . Current Hospital Diet Patient's current hospital diet: Regular Diet, Gluten Free Diet Discharge Diet Recommended Diet: Gluten Free Diet Procedures Procedures Performed: Left Total Knee Arthroplasty Pending Studies Studies pending at discharge: no Medical Emergencies . Who to Call and When: Medical Emergencies: If at any time you feel your situation is an emergency, please call [phone] immediately. . Non-Emergent Contact Non-Emergency issues call your: Surgeon . "Provider Documentation" section prepared by Charly Fontenot. .
[2017-09-23] MEDS: D5W AND 1/2NSS + 20MEQ KCL 1,000 ML IV SCH ×2 (00:22→08:14)
[2017-09-23 03:10] VITALS: BP 124/72; PULSE 77; TEMP 36.8; O2SAT 95
[2017-09-23] MEDS: KETOROLAC TROMETHAMINE 15 MG/ML VIAL IV. SCH ×3 (04:09→15:49)
[2017-09-23] MEDS: CEFAZOLIN IV 2,000 MG in SYRINGE 0 ML IV SCH (04:09)
[2017-09-23] MEDS: ACETAMINOPHEN 500 MG TAB PO SCH ×2 (05:37→14:27)
[2017-09-23 06:15] LABS: HEMATOCRIT 35.3 % (37-47); HEMOGLOBIN 11.5 g/dL (12.0-16.0); MEAN CELL VOLUME 88.7 fL (80-100); MEAN CORPUSCULAR HEMOGLOBIN 28.9 pg (25-34); MEAN CORPUSCULAR HGB CONC 32.6 g/dl (32-36); MEAN PLATELET VOLUME 10.3 fL (7.4-10.4); PLATELET COUNT 225 K/uL (130-400); RED CELL DISTRIBUTION WIDTH SD 48.7 fL (36.4-46.3); WHITE BLOOD COUNT 9.06 K/uL (4.8-10.8)
[2017-09-23 06:47] LABS: CALCIUM 8.1 mg/dl (8.5-10.1); CREATININE 0.86 mg/dl (0.60-1.20); POTASSIUM 4.3 mmol/L (3.5-5.1)
[2017-09-23 07:07] VITALS: BP 124/71; PULSE 85; TEMP 36.8; O2SAT 92
[2017-09-23] MEDS: CHECK SCOPOLAMINE PATCH PLACEMENT SCH ×2 (08:00→15:49)
[2017-09-23] MEDS ORDERED: CALCIUM CARBONATE 1250MG TAB PO SCH (09:00)
[2017-09-23] MEDS: TAPENTADOL ER 50 MG TABCR PO SCH (09:00)
[2017-09-23] MEDS ORDERED: MULTIVITAMIN TAB PO SCH ×2 (09:00)
[2017-09-23] MEDS ORDERED: PANTOprazole SOD 40 MG TAB PO SCH ×2 (09:00)
[2017-09-23] MEDS: DOCUSATE SODIUM 100 MG CAP PO SCH (09:37)
[2017-09-23] MEDS: FERROUS GLUCONATE 324 MG TAB PO SCH ×2 (09:37→12:30)
[2017-09-23] MEDS: ASPIRIN 81 MG ECTAB PO SCH (09:38)
[2017-09-23 11:18] VITALS: BP 131/82; PULSE 96; TEMP 36.9; O2SAT 99
[2017-09-23 15:21] VITALS: BP 148/74; PULSE 94; TEMP 37.2; O2SAT 94
[2017-09-23 15:23] VITALS: BP 148/74; PULSE 94; TEMP 37.2; O2SAT 94
--- NOTE | 2017-09-23 19:44 | PROGRESS NOTE ---
DATE: 09/23/2017 SUBJECTIVE: A 66-year-old white female postop day 1 from left knee replacement. She is doing pretty well. Therapy was rough this afternoon. Denies any chest pain or shortness of breath. Not feeling dizzy or lightheaded. Just a pretty fatigued. OBJECTIVE: VITAL SIGNS: Temperature 37.2. Vital signs stable. GENERAL: Reveals a pleasant, middle-aged female. She is lying in bed, looks reasonably comfortable. EXTREMITIES: Examination of the left leg reveals it to be well aligned. Dressing is clean, dry and intact. Calf is soft and supple. She can dorsiflex and plantarflex her foot appropriately. LABORATORY DATA: Hemoglobin 11.5, hematocrit 35.3. Electrolytes are stable. ASSESSMENT: A 66-year-old white female postop day 1 from left knee replacement, doing pretty well. Pretty rough at therapy today but managing okay. She wants to go home as her insurance has only approved a single day hospitalization. PLAN: 1. DVT prophylaxis including thigh-high TEDs, SCDs, and aspirin twice a day. 2. PT/OT. Weight bear as tolerated. Left total knee protocol. 3. Pain control, doing well with current pain regimen. 4. Disposition: Plan to discharge to home. She is going to do outpatient therapy.
== END 2017-09-23 16:55 | disposition home or self-care (01) | DRG 470 ==
LOC: C.ACU 10:51 → C.3E 14:38 → ENRESERV 15:07
PROVIDERS: ADMIT Orthopaedic Surgery Sports Medicine; ATTEND Orthopaedic Surgery Sports Medicine
PROC: 0SRD0J9 Replacement of Left Knee Joint with Synthetic Substitute, Cemented, Open Approach (ICD-10-PCS; principal; 2017-09-22 13:00)
DX: M17.12 Unilateral primary osteoarthritis, left knee (principal); K21.9 Gastro-esophageal reflux disease without esophagitis; E66.9 Obesity, unspecified; Z96.651 Presence of right artificial knee joint; Z88.5 Allergy status to narcotic agent; Z79.82 Long term (current) use of aspirin; Z68.38 Body mass index [BMI] 38.0-38.9, adult

== ENCOUNTER 2023-09-17 11:45 | Observation (INO) ==
--- NOTE | 2023-09-16 10:43 | Anesthesiology Consultation ---
Date of Service September 11, 2023 Assessment & Plan (1) Encounter for pre-operative examination: Infectious disease screening: Per assessment on 09/11/23: No known infectious disease contacts or current infectious disease symptoms. No noted recent Covid positive test result. Chart Review Chart Review: Acceptable Risk for Surgery and Patient seen in Pre Admission Testing (09/11/23) Teaching & Discussion Pre-Anesthesia Teaching/Discussion Notes: Instructed NPO after midnight before surgery,except medications with 15 cc of water. Medication instructions provided according to the PAT guidelines. History Surgery Operation Date: 09/17/23 07:00 Proposed Procedures p Left Reverse Total Shoulder For Fracture - Edenilson Mishra MD Height/Weight Height: 5 ft 3 in Weight: 99.2 kg Allergies Allergy/AdvReac Type Severity Reaction Status Date / Time codeine AdvReac Intermediate nausea Verified 09/10/23 15:18 morphine AdvReac Intermediate nausea Verified 09/10/23 15:18 oxycodone AdvReac nausea Uncoded 09/11/23 14:06 Medications Home Medications Medication Instructions Recorded Confirmed Last Taken acetaminophen 500 mg tablet 1,000 mg PO Q6H PRN Pain 09/10/23 09/10/23 Unknown aspirin 81 mg capsule 81 mg PO QAM 09/10/23 09/10/23 Unknown calcium carbonate 600 mg-vitamin 1 tab PO QAM 09/10/23 09/10/23 Unknown D3 5 mcg (200 unit) tablet ibuprofen 200 mg capsule 400 mg PO Q6H PRN Pain 09/10/23 09/10/23 Unknown multivitamin 1 tab PO QAM 09/10/23 09/10/23 Unknown omeprazole magnesium 20 mg 20 mg PO QAM 09/10/23 09/10/23 Unknown tablet,delayed release (Prilosec OTC) Past Medical History Medical History Closed fracture of left proximal humerus s/p a fall on 09/05/23 Heartburn Myasthenia gravis no active treatment, remission double vision initial presentation (no current issues) Obesity Exercise / Class Metabolic Activity II 4-5 Yardwork/Stairs/Walk up hill (one FS: No CP, no SOB) Past Family History Family History Other No family history of adverse response to anesthesia Past Surgical History Surgical History History of cholecystectomy History of tonsillectomy Hx of total knee arthroplasty R/L Past Anesthesia History No Hx of Anesthesia Complications and No Family Hx of Anesthesia Complications History of PONV No Hx of PONV and Hx of Motion Sickness (Situational) Social History Smoking Status: Never smoker Do You Dip or Chew Tobacco: No Hx Alcohol Use: Yes Alcohol type: wine alcohol intake frequency: holidays/special occasions only Hx Substance Use: No substance use type: does not use Review of Systems Patient denies chest pain, shortness of breath, dyspnea on exertion, fever, chills, cough, wheezing, palpitations. Physical Exam Vital Signs BP 155/82 P 86 TEMP 98.4 SP02 95%RA RESP 18 Physical Full cervical extension range of motion. Full TMJ range of motion. TMD 3.5 finger breaths Mallampati Score 2 Dentition: intact, several crowns (molars), + implant (left lower side) Lungs: clear throughout to auscultation Cardiac: regular rate and rhythm, no murmurs noted Spine: normal Carotid arteries: negative bruit Extremities: no LE edema Lab Results Anesthesia Preop Results Results Anesthesia Widget: WBC 10.37 K/ul (4.8-10.8) 09/11/23 Hgb 12.1 g/dl (12.0-16.0) 09/11/23 Hct 37.8 % (37.0-47.0) 09/11/23 Plt 260 K/uL (130-400) 09/11/23 Na 138 mmol/L (136-145) 09/11/23 K 4.3 mmol/L (3.5-5.1) 09/11/23 Cl 104 mmol/L (98-107) 09/11/23 CO2 30 mmol/L (21-32) 09/11/23 BUN 22 mg/dl (6-23) 09/11/23 Creat 0.80 mg/dl (0.6-1.2) 09/11/23 Glucose Level 100 mg/dl (70-99(Fasting)) H 09/11/23 PT 9.9 Seconds (9.0-12.0) 09/11/23 PTT 28 Seconds (21-31) 09/11/23 INR 0.9 (0.9-1.1) 09/11/23 Blood Type O Positive 09/11/23 Antibody Screen NEGATIVE 09/11/23 Testing Electrocardiogram Date: 09/11/23 NSR at 84bpm. "Normal ECG" Chest X-Ray Date: 09/11/23 FINDINGS: Lung volumes are normal. Lungs are clear. There is no pneumothorax or pleural effusion. Cardiac size is normal. Mediastinal contours are normal. There is no evidence for pulmonary edema. An impacted displaced left humeral head and neck fracture is partially imaged on this exam. IMPRESSION: No acute cardiopulmonary findings.
[~2023-09-17 11:45] MED LIST changes: -ACET-1138 PO; -ACETAMINOPHEN 500 MG TAB PO SCH; -ASPI81TA28 PO; -BUPIVACAINE 0.25% 30 ML VIAL ONE; -BUPIVACAINE LIPOSOME 266 MG, BUPIVACAINE/EPINEPHRINE INJ 50 ML, SODIUM CHLORIDE 0.9% PF... INFIL SCH; -CALC-393 PO; -CEFAZOLIN 2000MG IV PUSH 15 ML IV SCH; -FAMOTIDINE 20 MG TAB PO SCH; -GABAPENTIN 300 MG CAP PO SCH; -IBUP-1450 PO; -LACTATED RINGER'S 1000ML 1,000 ML IV SCH; -LACTATED RINGER'S 1000ML IV SCH; -LIDOCAINE HCL 2% 2 ML VIAL (20MG/ML) ONE; -METOCLOPRAMIDE HCL 10 MG TAB PO SCH; -MIDAZOLAM HCL 1 MG/ML 2ML VIAL ONE; -MULT-1027 PO; -ONDANSETRON INJ 2 MG/ML 2 ML VIAL ONE; -PRLSR20 PO; -PROPOFOL IV EMULSION 10 MG/ML 20 ML VIAL IV ONE; -SCOPOLAMINE 1.5 MG TDSY TD SCH; -TRANEXAMIC ACID INJ 1,000 MG x 1 Bag Intra-Op IV SCH
[2023-09-17] MEDS: LR 15ML/HR IV SCH (12:52)
[2023-09-17] MEDS: ACETAMINOPHEN 500 MG TAB PO SCH (12:52)
[2023-09-17] MEDS: LR 60ML/HR IV SCH (12:53)
--- NOTE | 2023-09-17 13:10 | History & Physical Bridge Note ---
Date of Service September 17, 2023 History & Physical Bridge Note I have examined the patient, reviewed the History & Physical and in the interval since the performance of the History & Physical I have noted the following changes of clinical significance: no changes noted
[2023-09-17] MEDS ORDERED: MIDAZOLAM HCL 1 MG/ML 2ML VIAL ONE (13:14)
[2023-09-17] MEDS ORDERED: fentaNYL citrate PF 100 MCG/2 ML VIAL ONE ×2 (13:28→15:06)
[2023-09-17] MEDS: TRANEXAMIC ACID 1,000 MG **IV Pre-op IV SCH (13:30)
[2023-09-17] MEDS ORDERED: ATROPINE SULFATE 0.1 MG/ML 10ML SYR IV PRN (13:45)
[2023-09-17] MEDS ORDERED: ePHEDrine sulfate 50 MG/ML AMP IV PRN (13:45)
[2023-09-17] MEDS ORDERED: ONDANSETRON INJ 2 MG/ML 2 ML VIAL IV PRN ×2 (13:45→17:35)
[2023-09-17] MEDS ORDERED: fentaNYL citrate PF 100 MCG/2 ML VIAL IV PRN (13:45)
[2023-09-17] MEDS: ceFAZolin 2000MG 2,000 MG/15 ML SYR IV SCH ×2 (13:51→21:10)
[2023-09-17] MEDS ORDERED: SUCCINYLCHOLINE 100MG/5ML SYR IV ONE (14:14)
[2023-09-17] MEDS ORDERED: ONDANSETRON INJ 2 MG/ML 2 ML VIAL ONE (14:14)
[2023-09-17] MEDS ORDERED: PROPOFOL IV EMULSION 10 MG/ML 20 ML VIAL IV ONE (14:14)
[2023-09-17] MEDS ORDERED: LIDOCAINE 2% 2 ML VIAL/AMP(20MG/ML) INFIL ONE (14:14)
[2023-09-17] MEDS: ROPIV 0.5% 246mg, Ketorolac 30mg, EPINEPHrine 0.5mg in NSS INFIL SCH (14:46)
[2023-09-17] MEDS ORDERED: DEXAMETHASONE SOD INJ 4 MG/ML VIAL ONE (14:56)
[2023-09-17] MEDS ORDERED: PHENYLEPHRINE HCL 10 MG/ML VIAL ONE (15:18)
[2023-09-17] MEDS ORDERED: PHENYLEPHRINE 100MCG/ML 10ML SYR IV ONE (15:22)
[2023-09-17] MEDS: TRANEXAMIC ACID 1,000 MG **IV Intra-op IV SCH (16:58)
[2023-09-17] MEDS ORDERED: NALOXONE HCL 0.4 MG/1 ML VIAL/CARP IV PRN (17:35)
[2023-09-17] MEDS ORDERED: MAGNESIUM HYDROXIDE SUSP 30 ML UDC PO PRN (17:35)
[2023-09-17] MEDS ORDERED: oxyCODONE HCL IR 5 MG TAB (IMMEDIATE RELEASE) PO PRN (17:35)
[2023-09-17] MEDS ORDERED: bisacodyL 10 MG SUPP PR PRN (17:35)
[2023-09-17] MEDS ORDERED: METOCLOPRAMIDE HCL INJ 5 MG/ML 2 ML VIAL IV PRN (17:35)
[2023-09-17] MEDS ORDERED: diphenhydrAMINE 50 MG/ML VIAL IV PRN (17:35)
--- NOTE | 2023-09-17 17:38 | Operative Report ---
PG Post Operative Report Pre & Post Diagnosis Operation Date: 09/17/23 07:00 Pre-Op Diagnosis: Left Proximal Humerus Closed Fracture Post-Op Diagnosis: Left Proximal Humerus Closed Fracture, Left proximal long head biceps rupture I identified the patient and participated in the time-out.: Yes Procedure Operation Date: 09/17/23 07:00 Actual Procedures p Left Reverse Total Shoulder arthroplasty with left open biceps tenodesis(Left) - Edenilson Mishra MD Surgeon Edenilson Mishra MD Payroll And Benefits Analyst Donna Michael PA-C Estimated Blood Loss 150 Findings Consistent with Post-Op Diagnosis Arthrex reverse shoulder arthroplasty was performed: Stem Univers Revers Humeral Stem Size 6, Humeral Insert Small 36 +3, SutureCup 36 Neutral; baseplate - 24mm 20deg Full Augment +2 lateralized Oblique, Modular Post 20mm, [id number] mm +4 lateralized, all locking peripheral screws 5.5 x 32mm, 28mm, 16, 16mm. Postoperatively, range of motion parameters after implantation of prosthesis revealed a stable prosthesis with range of motion parameters as follows: 130 of forward flexion, 60 of external rotation at the side, 90 of abduction, 90 of external rotation with the arm abducted, 30 of internal rotation with the arm abducted. The patient's safe range of motion included the ability to get to the back of her head. Internal rotation to the belly without tension. Suture tape tuberosity fracture bridge repair tied to shaft fibertape cerclage. Specimens Humeral Head Drains none Anesthesia Type General Regional Complications none Disposition Accompanied Patient To Recovery: No Disposition: Recovery Room Indications 72 yo otherwise healthy and active F presented after fall resulting in 4-part proximal humerus fracture with head split. Due to age and activity and non- repairability of the fracture, I offered treatement with a reverse shoulder arthroplasty for expeditious latter day of functional shoulder motion. After dicussion of the risks, benefits, and alternatives, informed consent was obtained in clinic and confirmed today. . Description of Procedure The patient was identified in the preoperative holding area. The operative extremity was marked. Regional block was administered by Anesthesia. The patient was then brought to the operating room and placed supine. Preliminary time-out procedure was performed. All were in agreement. General endotracheal anesthesia was induced without any issues. The patient was sat up in around 40-45 degrees of inclination in the beachchair position. Exam under anesthesia was performed confirming the above findings. Preoperative antibiotics were administered. Sequential compressive devices were placed on her bilateral lower extremities for DVT prophylaxis. Bony prominences were inspected, well-padded and free of any evidence for peripheral nerve compression. The operative upper extremity was then prepped and draped in a normal standard fashion, with use of a padded House.. Prior to incision, a second time-out procedure was performed confirming the patient, site, laterality and the procedure. All were in agreement. 1. Right shoulder open reverse total shoulder replacement with augmented glenoid baseplate with patient specific Virtual Implant Positioning guide: A deltopectoral incision was utilized. Incision was carried out sharply and with electrocautery through the skin and subcutaneous tissues. The deltopectoral interval was developed. The cephalic vein was taken laterally. Subdeltoid space was developed bluntly. A deltoid brown retractor was placed to retract the deltoid laterally and superiorly. 1 cm of the superior border of the pectoralis major tendon insertion site was released in standard fashion to improve exposure. Clavipectoral fascia was removed with electrocautery. Extensive subacromial bursitis was encountered and this was completely removed with a Bovie. The lateral aspect of the conjoined tendon was then followed to its insertion site on the coracoid. The conjoined tendon was retracted medially. The biceps tendon was displaced from its groove due to fracture and partially reptured. It was identified and released from the sheath using a Bovie and followed up. The rotator interval was obliterated and the biceps groove was rotated superiorly.. A tenodesis was performed to the pectoralis major tendon as will be discussed in further detail below. Subscapularis tendon was still present and attached on the lesser tuberosity fracture fragment. The comminution was significant. The greater tuberosity fragment had a large amount of residual bone. An osteotome was used to free up the greater and lesser tuberosities. The head fragments were levered out with a Pope. A large rongeur was used to shell out the tuberosities for betterl reduction on the humeral prosthesis. The bone was soft and malleable. Once the tuberosity fragments were isolated, Fiberlinks were placed thru the tuberosities. We then proceeded over to glenoid. An anterior glenoid neck retractor was placed. The MGHL and SGHL were released off of the muscular portion of the subscapularis being mindful of palpating and identifying the axillary nerve to make sure it was free of injury during releases. Next, the interval between the IGHL and the muscular portions of the subscapularis was identified. My finger was on the axillary nerve to protect it during releases. The IGHL was then released up to around the 7 o'clock position. A blunt retractor was then placed to retract the humerus posteriorly. A sharp Hohmann retractor was placed at the 12 o'clock position. The glenoid deformity was evaluated with assistance with the virtual model and plan. Extraneous capsulolabral tissue was dissected to reveal the bone anatomy. This confirmed our decision to proceed with preoperative virtual planning. The arm was placed around 30 degrees of flexion, 90 degrees of external rotation and 30 degrees of abduction to distract the humerus posteriorly. Labrum was circumferentially removed including the biceps tendon stump with a Bovie. The adjustable pin guide set to our specifications from the VIP system was then placed on the glenoid. It had to be adjusted to match the appearance on the VIP. Reaming was conducted based on the guide. The preparation was for the full augment MGS baseplate. The prepared glenoid surface was irrigated. The wedge augment was trialed. The final implants were assembled on the back table. The MGS baseplate was impacted in position, followed by fixation screw. All screws placed with locking ability. A trial 36 glenosphere was placed. It was appropriate size and coverage, without soft tissue impingement on the short head biceps. The final glenosphere was then placed and secured with screw. Copious irrigation was performed to irrigate out the joint. The final construct appeared to be extremely strong as the entire glenoid and scapula moved together as one unit confirming excellent fixation of the baseplate. Humerus was then brought back into view with external rotation and forward translation used the suture cerclage. A small portion of the calcar remained and the biceps groove was used for orientation. Hand reaming was conducted to size 7. The broaching sequence found the size 6 to gain good purchase and matched the anatomy. The canal was thoroughly irrigated. The final stem, tray, and suture cerclage were prepped on the back table. Size 6 seemed to gain excellent purchase and restore appropriate height. The final stem prosthesis was then brought onto the field. Final tray insert as well as the poly components were opened. The final humeral component with the tray and poly were made on the back table, matching the trial implant. Humeral canal was copiously irrigated. The size 6 was then impacted into the humerus. Poly was provided and fixed on the tray. The humerus was then reduced onto the glenoid with the arm in abduction and external rotation. The arm was taken out of the [place], taken through a physiologic range of motion. No evidence for impingement. No evidence for kick off. No shuck. With the final components in place, attention directed to the tuberosities. Suture tape on the cup was routed thru the fiberlinks to gain tuberosity control. The tuberosities were then re-approximated using the arthrex suture bridge system. Excellent compression of the fragments was achieved. The tails from the tuberosities were tied firmly and connected distally with the cerclage sitch. The fracture repaired well and covered the prominent stem. 2. Open biceps tenodesis: As dictated above, enlargement of the biceps tendon was noted consistent with tendinopathy. A tenodesis was opted. The tendon was released from the bicipital sheath using a Bovie and then tenodesed to the pectoralis major tendon using a #2 Fiberwire suture in [id number] fashion. The tendon was then followed up as proximal as could be visualized and then tenotomized. Remaining stump was removed just proximal to the tenodesis site. This completed the open biceps tenodesis. Closing sequence involved 2-3 min soaking of iodine, throught NS irrigation, and placement of 1g vancomycin . The wound was copiously irrigated. The deltopectoral incision was closed with continuous #0 Vicryl suture. Subcutaneous tissues were closed with 2-0 Vicryl suture in buried interrupted fashion and skin closed with riana. The wound was dressed with xeroform, gauze, and ABDs, contained by ioban. The patient was placed in a standard sling and turned over to the anesthesia team. The patient tolerated procedure well, was extubated in the operating ch[place] m without complication, and transferred to the PACU in stable condition. DISPOSITION: The patient will remain in sling for a total of 4 weeks. Hand, wrist, and elbow range of motion exercises may be initiated. Formal therapy will be initiated starting with gentle active assisted range of motion. No strengthening will be permitted before 12 weeks. Physician supply assistant attestation: Donna Michael PA-C was present and scrubbed for the duration of the case. Skilled assistance was essential to prepping/draping, patient positioning, retraction, and wound closure. I attest to the content of the Intraoperative Record and any orders documented therein. Any exceptions are noted below.
--- NOTE | 2023-09-17 17:38 | Post Operative Brief Note ---
PG Immediate Post Op with CF Date of Surgery September 17, 2023 Pre & Post Diagnosis Operation Date: 09/17/23 07:00 Pre-Op Diagnosis: Left Proximal Humerus Closed Fracture Post-Op Diagnosis: Left Proximal Humerus Closed Fracture, left proximal biceps rupture I identified the patient and participated in the time-out.: Yes Procedure Operation Date: 09/17/23 07:00 Actual Procedures p Left Reverse Total Shoulder arthroplasty with left open biceps tenodesis(Left) - Edenilson Mishra MD Surgeon Edenilson Mishra MD Elevator Operator Service Donna Michael PA-C Estimated Blood Loss 150 Findings Consistent with Post-Op Diagnosis Specimens Specimen Description: A. Left humeral head Anesthesia Type General Regional
--- NOTE | 2023-09-17 18:07 | XRay Report ---
XR shoulder LT min 2V routine HISTORY: 72 years-old Female Post shoulder surgery left shoulder arthroplasty COMPARISON: CT 09/11/2023 TECHNIQUE: 3 views of the left shoulder FINDINGS: Reverse total joint arthroplasty. Satisfactory alignment without acute fracture or an expected opaque foreign body. Overlying skin riana with expected postoperative soft tissue swelling and deep tissu e air. IMPRESSION: Satisfactory alignment of the reverse left shoulder total joint arthroplasty. ACT 112: Negative or not required by law. The above report was generated using voice recognition software. It may contain grammatical, syntax o r spelling errors. Electronically signed by: Ranjan Mena M.D. 09/17/2023 6:06 PM
--- NOTE | 2023-09-17 19:03 | Anesthesiology Progress Note ---
Date of Service September 17, 2023 Anesthesia Post Procedure Vital Signs Vital Signs: Temp Pulse Pulse Resp BP Pulse Ox O2 Del Method 09/17/23 18:45 36.3 C L 71 15 158/75 H 93 Room Air 09/17/23 18:30 36.3 C L 71 16 168/77 H 94 Room Air 09/17/23 18:20 36.3 C L 76 17 166/88 H 93 Room Air 09/17/23 18:10 73 12 172/87 H 100 Room Air 09/17/23 18:00 74 16 156/98 H 100 Oxymask 09/17/23 17:50 80 13 170/100 H 99 Oxymask 09/17/23 17:40 36.2 C L 16 168/87 H 97 Oxymask 09/17/23 13:17 37.1 C 82 20 163/92 H 97 Room Air O2 Flow Rate 09/17/23 18:45 0 09/17/23 18:30 0 09/17/23 18:20 0 09/17/23 18:10 0 09/17/23 18:00 3 09/17/23 17:50 3 09/17/23 17:40 5 09/17/23 13:17 Transfer of Care Handoff Completed per policy Notes Mental Status: alert / awake / arousable and participated in evaluation Patient Amnestic to Procedure: Yes Nausea / Vomiting: improving with treatment Pain: adequately controlled and improving with treatment Airway Patency, RR, SpO2: stable & adequate BP & HR: stable & adequate Hydration State: stable & adequate Anesthetic Complications: no major complications apparent and Pt Satisfied with anesthetic care Notes: Pt interscalene block is functioning well. Arm in sling
[2023-09-17] MEDS ORDERED: ACETAMINOPHEN 1,000 MG/100 ML VIAL IV PRN (20:00)
[2023-09-17] MEDS: VANCOMYCIN HCL 1000MG/20ML VIAL ONE (20:08)
[2023-09-17] MEDS: SODIUM CHLORIDE 0.9% 1,000 ML IV SCH (20:10)
[2023-09-17] MEDS: DOCUSATE SODIUM 100 MG CAP PO SCH (21:10)
[2023-09-17] MEDS: SENNA 8.6 MG TAB PO SCH (21:10)
[2023-09-18 07:30] LABS: Basophils # (auto) 0.03 K/uL (0.00-0.20); Basophils % (auto) 0.2 %; Eosinophils # (auto) 0.01 K/uL (0.00-0.50); Eosinophils % (auto) 0.1 %; Hematocrit (blood only) 32.5 % (37.0-47.0); Immature Granulocytes # (auto) 0.05 K/uL (0.01-0.20); Immature Granulocytes % (auto) 0.4 %; Lymphocytes # (auto) 2.71 K/uL (1.20-3.40); Lymphocytes % (auto) 21.1 %; Mean Corpuscular Hemoglobin 29.7 pg (25.0-34.0); Mean Corpuscular Hgb Conc 33.8 g/dL (32.0-36.0); Mean Corpuscular Volume 87.8 fL (80.0-100.0); Mean Platelet Volume 10.8 fL (9.4-12.4); Monocytes # (auto) 0.91 K/uL (0.11-0.59); Monocytes % (auto) 7.1 %; Neutrophils # (auto) 9.11 K/uL (1.40-6.50); Neutrophils % (auto) 71.1 %; Platelet Count 344 K/uL (130-400); RDW Coefficient of Variation 13.7 % (11.5-14.5); RDW Standard Deviation 44.2 fL (36.4-46.3); White Blood Count 12.82 K/ul (4.8-10.8)
[2023-09-18] MEDS: ACETAMINOPHEN 500 MG TAB PO PRN (07:30)
[2023-09-18] MEDS: ASPIRIN 81 MG ECTAB PO SCH (07:31)
[2023-09-18] MEDS: PANTOprazole 40 MG TAB PO SCH (07:31)
[2023-09-18] MEDS: CALCIUM 600MG + VIT D 400 IU TAB PO SCH (07:31)
[2023-09-18] MEDS: MULTIVITAMIN TAB PO SCH (07:32)
[2023-09-18 08:01] LABS: BUN Creatinine Ratio 22.4 (10-20); Calcium 8.9 mg/dl (8.6-10.3); Est GFR (African American) 90.2 ml/min; Est GFR (Non-African American) 77.8 ml/min
--- NOTE | 2023-09-18 08:33 | Orthopedic Progress Note ---
Date of Service September 18, 2023 Assessment & Plan (1) Closed fracture of left proximal humerus: (2) S/p reverse total shoulder arthroplasty: Plan Postoperative day 1. No complications. Stable for discharge. In clinic in 2 weeks. Nonweightbearing to the left upper extremity. Gentle range of motion per physical therapy protocol. Sling for comfort. Subjective No pain overnight, but started to feel achy through the extremity today. Has taken only Tylenol for headaches. Appetite intact and awaiting breakfast. Desires to go home today. Review of Systems All systems reviewed & are unremarkable except as noted in HPI & below. Physical Exam LUE: Ecchymosis is stable through the upper extremity. The dressing is clean and dry and intact. Sensation intact in the axillary nerve distribution Constitutional WD/WN, vitals as above no acute distress and not intoxicated appearing Respiratory normal respiratory effort; no labored breathing Cardiovascular Extremities: normal capillary refill Results & Data Results & Data Laboratory Results H & H /05/31 Range/Units 06:55 Hgb 11.0 L (12.0-16.0) g/dl Hct 32.5 L (37.0-47.0) % Diagnostic Findings Radiographs reviewed. No implant complications. PG Care Time/CCT Total # of Minutes Spent Total Time Spent with Patient: Total time spent is greater than 50% in coordination of care (as documented) at patient's floor/unit and/or counseling patient: Coding Level of Care Code 37516 Post Operative Follow-Up Diagnoses Closed fracture of left proximal humerus S42.A S/p reverse total shoulder arthroplasty Z96.619
[2023-09-18] MEDS ORDERED: NON-FORMULARY MEDICATION (Multivitamin Tablet) PO SCH (09:00)
--- NOTE | 2023-09-18 09:57 | Discharge Summary ---
Date of Service September 18, 2023 Principal Diagnosis Same as "Discharge Diagnosis" noted below under Discharge Instructions. Discharge Exam LUE: Ecchymosis is stable through the upper extremity. The dressing is clean and dry and intact. Sensation intact in the axillary nerve distribution Discharge Data Procedures Performed Operation Date: 09/17/23 07:00 Actual Procedures p Left Reverse Total Shoulder arthroplasty with left biceps tenodesis(Left) - Edenilson Mishra MD Ordered Studies 09/17/23 05:00 US - OR guided needle placemen Routine Hospital Course (1) S/p reverse total shoulder arthroplasty: On September 17, 2023 Mallika arrived at [facility] and underwent a left reverse total shoulder arthroplasty with left biceps tenodesis performed by Dr. Mishra with no issues or complications. She had a general anesthetic. Postoperatively, she was transferred to the PACU for immediate postoperative care and then transferred to the general orthopedic floor in stable condition. Her hospital course was uneventful. On postoperative day #1, her vital signs are stable and her pain was well-controlled. She participated well with physical therapy working on range of motion exercises. She was then discharged home in stable condition. She will follow-up with Dr. Mishra in 2 weeks for postoperative management. PG Care Time/CCT Total # of Minutes Spent Total Time Spent with Patient: Total time spent is greater than 50% in coordination of care (as documented) at patient's floor/unit and/or counseling patient: Discharge Plan Discharge Items Patient Disposition: Home - Self-Care Reason For Visit: S/P LEFT REVERSE TOTAL SHOULDER Discharge Diagnosis: Same Activity: Per Instructions section Non-emergency contact: Surgeon Call non-emergency contact if: your temperature is above 101.5, your wound has increased redness, your wound has increased drainage and your wound pain has increased Follow-up/Referrals: PCP,NO [Primary Care Provider] - Diet: Regular Addtl Attending Provider Instructions: Edenilson Mishra M.D. [facility] [address] [facility], [place] [address] Dressing Care: Leave the dressing in place for 3 days. After 3 days you may remove the dressing. If the incision is not draining, you do not have to re-cover the dressing. Millie will be removed at your postop appointment. If there is a little bit of drainage or if the wound is bothersome with your clothing, cover the incision with a dry dressing. Do not use any ointments or topical medications unless directed by your surgeon. Do not submerse the incisions in water no pools, oceans, lakes, jacuzzis, bathtubs, etc for at least 3 weeks. Showering: After 3 days you may remove the dressing and shower normally. Allow soap and water to run over the incision and pat dry. Do not scrub or soak the incision. Activity and Therapy Recommendations: - If you are not using home therapy then Outpatient Physical Therapy should start about 3-5 days from your day of surgery. Therapy will last about 8-12 weeks - Wear your sling for 3 weeks, unless otherwise instructed. You may remove your sling to shower and to dress, but otherwise, you should be in your sling at all times, including while sleeping - The shoulder replacement is very stable and you can use your hand while in the sling - You were shown a series of exercises in the hospital. Do these exercises daily including the exercises you were shown in physical therapy. - NO EXTERNAL ROTATION - do not reach out to your side. Pain Control: Use frequent ice to reduce amount of pain medications. Use for 30 minutes per hour. Do not leave in place longer than 30 minutes, especially when your block is in effect, to prevent frostbite or thermal injury. Medications: - Opioid: You will likely be sent home with a prescription for the opioid pain medication. Use as directed, as needed. - Other medications may be prescribed for specific circumstances. If you have any questions, please call the office at . - Resume previous home medications unless otherwise instructed Follow-Up: 1. Ortho Clinic with Dr. Mishra: You should be seen in 10-14 days. Please call immediately to schedule if you do not have an appointment. Pending Studies at Discharge: No Stand-Alone Forms: My [facility] [employer], Pain - Opioid Pain Management, Smoking Cessation Medications and DC Order Prescriptions: New tramadol 50 mg tablet 50 mg PO Q6H PRN (Reason: pain) Qty: 18 0RF ondansetron 4 mg tablet,disintegrating 4 mg PO Q6H PRN (Reason: nausea and vomiting) Qty: 10 0RF cefadroxil 500 mg capsule 500 mg PO BID 10 Days Qty: 20 0RF Continued multivitamin Tablet 1 tab PO QAM calcium carbonate-vitamin D3 600 mg-5 mcg (200 unit) Tablet 1 tab PO QAM omeprazole magnesium [Prilosec OTC] 20 mg Tablet,Delayed Release (Dr/Ec) 20 mg PO QAM aspirin 81 mg Capsule 81 mg PO QAM ibuprofen 200 mg Capsule 400 mg PO Q6H PRN (Reason: Pain) acetaminophen 500 mg Tablet 1,000 mg PO Q6H PRN (Reason: Pain) Discharge Orders: Discharge Order (Routine); Ordered 09/18/23 Ordered By: Ranjan Brasher/Other Patient Handouts: Shoulder Replace Home Recovery, Shoulder Replacement Surg Recovery Admission Data Admit Date/Time: 09/17/23 17:35 Attending Provider: Edenilson Mishra Admit Provider: Edenilson Mishra Primary Care Provider: PCP,NO Other Interventions: Discharge Summary Assessment (RN) Last Done: 09/18/23 09:54
[2023-09-18] MEDS: IBUPROFEN 200 MG TAB PO PRN (10:49)
== END 2023-09-18 10:59 | disposition home or self-care (01) ==
LOC: 3N 11:45 → ASU 11:45